=== PATIENT | female | born 1975 | race Caucasian/White ===

== ENCOUNTER 2017-02-08 17:37 | Emergency (ER) | payer SELFPAY ==
[~2017-02-08] VITALS: Ht 157.5 cm; Wt 90.0 kg
[~2017-02-08 17:37] MED LIST: HYDR25TA5 PO; IBUP1TAB7 PO; PRAM0.25 PO; SERT-129 PO
[2017-02-08 17:43] VITALS: BP 114/82; PULSE 90; RESP 16; TEMP 98.2; O2SAT 96
[2017-02-08] MEDS ORDERED: IBUP1TAB7 PO (18:54)
[2017-02-08] MEDS ORDERED: ROBA500T PO (18:54)
--- NOTE | 2017-02-08 18:54 | PD ---
HPI Chief Complaint: Back/ Neck Pain or Injury Time Seen by Provider: 18:45 Travel History International Travel<30 days: No Contact w/Intl Traveler<30days: No Traveled to known affect area: No History of Present Illness HPI 41-year-old female here with left low back pain 3 days. Patient reports she was bending over in the shower felt a pain within left back. Over the last 3 days pain has intensified and now feels as if it spasming. Pain does not radiate. She denies incontinence, saddle anesthesia, paresthesia or weakness in the extremities. Pain is worse with movement and relieved with rest. PFSH Past Medical History Hx Anticoagulant Therapy: No Depression: Yes (AFTER FATHERS ) Heart Rhythm Problems: Yes (palpitations (?)) Cancer: No Cardiovascular Problems: Yes (HTN) Diabetes: No Diminished Hearing: No Gastrointestinal Disorders: No Genitourinary: Yes Hypertension: Yes Implanted Vascular Access Dvce: No Musculoskeletal: No Neurologic: No Respiratory: No Immunizations Current: Yes Pneumonia: Yes Tetanus Vaccination: Unknown ?: Not : 2 Para: 2 Ovarian Cysts: Yes Tubal Ligation: Yes Past Surgical History Abdominal Surgery: Yes (cholestysectomy, appendectomy) Appendectomy: Yes (1982) Section: Yes (X1) Cholecystectomy: Yes Gynecologic Surgery: Yes (c- section, tubal ligation, ovarian cyst) Social History Alcohol Use: No Tobacco Use: No Substance Use: No Allergies-Medications (Allergen,Severity, Reaction): Coded Allergies: metoclopramide (Unverified Adverse Reaction, Mild, ITCHY, 02/08/17) Reported Meds & Prescriptions Reported Meds & Active Scripts Active Sertraline (Sertraline HCl) 100 Mg Tab 100 Mg PO DAILY Pramipexole (Pramipexole Dihydrochloride) 0.25 Mg Tab 0.25 Mg PO HS Hydrochlorothiazide 25 Mg Tab 25 Mg PO DAILY Review of Systems Except as stated in HPI: all other systems reviewed are Neg General / Constitutional: No: Fever Physical Exam Narrative GENERAL: Alert female in no distress. SKIN: Warm and dry. HEAD: Normocephalic. EYES: No scleral icterus. No injection or drainage. NECK: Supple, trachea midline. No JVD or lymphadenopathy. CARDIOVASCULAR: Regular rate and rhythm without murmurs, gallops, or rubs. RESPIRATORY: Breath sounds equal bilaterally. No accessory muscle use. GASTROINTESTINAL: Abdomen soft, non-tender, nondistended. MUSCULOSKELETAL: No cyanosis, or edema. Normal strength and sensation in lower extremity. 2+ DTRs. BACK: Left lumbar tenderness. Without obvious deformity. No CVA tenderness. Data Data Last Documented VS Vital Signs Date Time Temp Pulse Resp B/P (MAP) Pulse Ox O2 Delivery O2 Flow Rate FiO2 02/08/17 17:43 98.2 90 16 114/82 (93) 96 Orders Orders Ketorolac Inj (Toradol Inj) (02/08/17 19:00) Orphenadrine Inj (Norflex Inj) (02/08/17 19:00) [facility] Medical Decision Making Medical Screen Exam Complete: Yes Emergency Medical Condition: Yes Differential Diagnosis Umber strain, sciatica, herniated disc Narrative Course 41-year-old female with left low back pain 3 days. She has left lumbar paraspinous musculature tenderness. Normal neurologic exam. She'll be treated for lumbar strain. Diagnosis Primary Impression: Lumbar strain Qualified Codes: S39.012A - Strain of muscle, fascia and tendon of lower back , initial encounter Referrals: Primary Care Physician Scripts Methocarbamol (Robaxin) 500 Mg Tab 500 MG PO TID for Muscle Spasm, #12 TAB 0 Refills Prov: Fe Morgan 02/08/17 Ibuprofen (Ibuprofen) 800 Mg Tab 800 MG PO Q6HR Y for PAIN, #40 TAB 0 Refills Prov: Fe Morgan 02/08/17 Disposition: 01 DISCHARGE HOME Condition: Stable Fe Morgan Feb 08, 2017 18:54
[2017-02-08] MEDS ORDERED: ORPHENADRINE INJ 60 MG/2 ML AMP IM ONE (19:00)
[2017-02-08] MEDS ORDERED: KETOROLAC TROMETHAMINE 60 MG/2 ML (IM) VIAL IM ONE (19:00)
[2017-02-12] MEDS ORDERED: PRAM0.25 PO (14:44)
[2017-02-16] MEDS ORDERED: PRAM0.5T PO (12:35)
== END 2017-02-08 19:18 | disposition home or self-care (01) ==
LOC: PHEFT 17:37
DX: S39.012A Strain of muscle, fascia and tendon of lower back, initial encounter (principal); I10 Essential (primary) hypertension; X50.1XXA Overexertion from prolonged static or awkward postures, initial encounter; Y93.E1 Activity, personal bathing and showering; Y92.002 Bathroom of unspecified non-institutional (private) residence as the place of occurrence of the external cause
CPT/HCPCS: 96372; 99284; J1885; J2360

== ENCOUNTER 2017-04-13 19:20 | Emergency (ER) | payer SELFPAY ==
[~2017-04-13] VITALS: Ht 157.5 cm; Wt 84.0 kg
[2017-04-13 19:42] VITALS: BP 150/85; PULSE 81; RESP 16; TEMP 99.3; O2SAT 97
[2017-04-14] MEDS ORDERED: TYLE325T PO (01:00)
== END 2017-04-13 20:55 | disposition left against medical advice (07) ==
LOC: PHED 19:20
DX: R10.9 Unspecified abdominal pain (principal); Z98.890 Other specified postprocedural states; Z53.21 Procedure and treatment not carried out due to patient leaving prior to being seen by health care provider
CPT/HCPCS: 99281

== ENCOUNTER 2017-04-13 22:11 | Emergency (ER) | payer SELFPAY ==
[2017-04-13 22:23] VITALS: BP 125/65; PULSE 76; RESP 19; TEMP 98.4; O2SAT 97
[2017-04-13] MEDS ORDERED: ONDANSETRON HCL 4 MG/2 ML VIAL IVP ONE (22:30)
[2017-04-13] MEDS ORDERED: KETOROLAC TROMETHAMINE 30 MG/ML (IVP) VIAL IV PUSH ONE (22:30)
--- NOTE | 2017-04-13 22:33 | PD ---
HPI Chief Complaint: Abdominal Pain Time Seen by Provider: 22:27 Travel History International Travel<30 days: No Contact w/Intl Traveler<30days: No Traveled to known affect area: No History of Present Illness HPI 41yo F with PMH of HTN and depression presents to the ED with c/o abdominal pain since 7pm today. Pain is sharp, epigastric and RUQ. It is intermittent and associated with some nausea. Denies any fever, chest pain, sob, vomiting, diarrhea, dysuria, hematuria. Said she started having right sided headed since the pain was so bad on her way here. Feels like her usual headache and denies any neck pain, focal weakness or numbness, visual changes. Did not take any pain medication at home. PSH include appendectomy, cholecystectomy, tubal ligation and liposuction. Denies any alcohol use. PFSH Past Medical History Hx Anticoagulant Therapy: No Depression: Yes Heart Rhythm Problems: Yes Cancer: No Cardiovascular Problems: Yes (HTN) Diabetes: No Diminished Hearing: No Gastrointestinal Disorders: No Genitourinary: Yes Hypertension: Yes Implanted Vascular Access Dvce: No Musculoskeletal: No Neurologic: No Respiratory: No Immunizations Current: Yes Pneumonia: Yes Influenza Vaccination: No ?: Not : 2 Para: 2 Ovarian Cysts: Yes Tubal Ligation: Yes Past Surgical History Abdominal Surgery: Yes (LIPO SUCTION) Appendectomy: Yes (1982) Section: Yes (X1) Cholecystectomy: Yes Gynecologic Surgery: Yes (c- section, tubal ligation, ovarian cyst) Social History Alcohol Use: No Tobacco Use: No Substance Use: No Allergies-Medications (Allergen,Severity, Reaction): Coded Allergies: metoclopramide (Verified Adverse Reaction, Mild, ITCHY, 04/13/17) Reported Meds & Prescriptions Reported Meds & Active Scripts Active Hydrochlorothiazide 25 Mg Tab 25 Mg PO DAILY Ibuprofen 800 Mg Tab 800 Mg PO Q6HR PRN Sertraline (Sertraline HCl) 100 Mg Tab 100 Mg PO DAILY Reported Pramipexole (Pramipexole Dihydrochloride) 0.25 Mg Tab 0.25 Mg PO BID Review of Systems Except as stated in HPI: all other systems reviewed are Neg Physical Exam Narrative GENERAL: 41yo F in mild distress. SKIN: Focused skin assessment warm/dry. HEAD: Atraumatic. Normocephalic. EYES: Pupils equal and round. No scleral icterus. No injection or drainage. ENT: No nasal bleeding or discharge. Mucous membranes pink and moist. NECK: Trachea midline. No JVD. CARDIOVASCULAR: Regular rate and rhythm. No murmur appreciated. RESPIRATORY: No accessory muscle use. Clear to auscultation. Breath sounds equal bilaterally. GASTROINTESTINAL: Abdomen soft, +TTP diffusely but more epigastric and RUQ. No rebound tenderness or guarding. MUSCULOSKELETAL: No obvious deformities. No clubbing. No cyanosis. No edema. NEUROLOGICAL: Awake and alert. No obvious cranial nerve deficits. Motor grossly within normal limits in all extremities. Sensation intact. Normal speech. PSYCHIATRIC: Appropriate mood and affect; insight and judgment normal. Data Data Last Documented VS Vital Signs Date Time Temp Pulse Resp B/P (MAP) Pulse Ox O2 Delivery O2 Flow Rate FiO2 04/13/17:25 19 04/13/17:23 98.4 76 125/65 (85) 97 Orders Orders Complete Blood Count With Diff (04/13/17:) Comprehensive Metabolic Panel (04/13/17:) Lipase (04/13/17 22:27) Prothrombin Time / Inr (Pt) (04/13/17:) Act Partial Throm Time (Ptt) (04/13/17:) Urinalysis - C+S If Indicated (04/13/17:) Ct Abd/Pel W Iv Contrast(Rout) (04/13/17 22:27) Ondansetron Inj (Zofran Inj) (04/13/17 22:30) Electrocardiogram (04/13/17 22:27) Ed Urine Pregnancytest Poc (04/13/17 22:27) Ketorolac Inj (Toradol Inj) (04/13/17 22:30) Morphine Inj (Morphine Inj) (04/13/17 22:45) Iohexol 350 Inj (Omnipaque 350 Inj) (04/13/17 23:04) Potassium Chloride (Kcl) (04/13/17 23:30) Morphine Inj (Morphine Inj) (04/13/17 23:30) Labs Laboratory Tests Test 04/13/17 22:30 04/14/17 00:10 White Blood Count 12.8 TH/MM3 Red Blood Count 4.32 MIL/MM3 Hemoglobin 12.1 GM/DL Hematocrit 35.6 % Mean Corpuscular Volume 82.3 FL Mean Corpuscular Hemoglobin 27.9 PG Mean Corpuscular Hemoglobin Concent 33.9 % Red Cell Distribution Width 14.0 % Platelet Count 288 TH/MM3 Mean Platelet Volume 8.5 FL Neutrophils (%) (Auto) 64.5 % Lymphocytes (%) (Auto) 26.3 % Monocytes (%) (Auto) 7.5 % Eosinophils (%) (Auto) 1.1 % Basophils (%) (Auto) 0.6 % Neutrophils # (Auto) 8.3 TH/MM3 Lymphocytes # (Auto) 3.4 TH/MM3 Monocytes # (Auto) 1.0 TH/MM3 Eosinophils # (Auto) 0.1 TH/MM3 Basophils # (Auto) 0.1 TH/MM3 CBC Comment DIFF FINAL Differential Comment Prothrombin Time 10.1 SEC Prothromb Time International Ratio 1.0 RATIO Activated Partial Thromboplast Time 24.7 SEC Blood Urea Nitrogen 20 MG/DL Creatinine 0.82 MG/DL Random Glucose 112 MG/DL Total Protein 7.7 GM/DL Albumin 3.7 GM/DL Calcium Level 9.3 MG/DL Alkaline Phosphatase 61 U/L Aspartate Amino Transf (AST/SGOT) 14 U/L Alanine Aminotransferase (ALT/SGPT) 47 U/L Total Bilirubin 0.3 MG/DL Sodium Level 139 MEQ/L Potassium Level 3.0 MEQ/L Chloride Level 101 MEQ/L Carbon Dioxide Level 29.1 MEQ/L Anion Gap 9 MEQ/L Estimat Glomerular Filtration Rate 76 ML/MIN Lipase 104 U/L Urine Color YELLOW Urine Turbidity CLEAR Urine pH 7.0 Urine Specific Stanley GREATER THAN 1.050 Urine Protein 30 mg/dL Urine Glucose (UA) NEG mg/dL Urine Ketones NEG mg/dL Urine Occult Blood NEG Urine Nitrite NEG Urine Bilirubin NEG Urine Urobilinogen LESS THAN 2.0 MG/DL Urine Leukocyte Esterase NEG Urine RBC 2 /hpf Urine WBC LESS THAN 1 /hpf Urine Squamous Epithelial Cells 3 /hpf Urine Bacteria RARE /hpf Urine Mucus FEW /lpf Microscopic Urinalysis Comment CULT NOT INDICATED MDM Medical Decision Making Medical Screen Exam Complete: Yes Emergency Medical Condition: Yes Interpretation(s) EKG: NSR 69bpm. Normal axis. T wave flattening V2, V3. Differential Diagnosis Peptic ulcer disease vs. pancreatitis vs. choledocholithiasis vs. hepatitis Narrative Course 41yo F with epigastric/right upper abdominal pain. Vital signs stable. Labs reviewed, WBC 12.8. BUN mildly elevated at 20. Pt tolerating PO and can orally hydrate. Mild hypokalemia at 3.0, replaced orally. Lipase normal. LFTs normal. CT a/p showed no acute disease. Pt given toradol and zofran which didnt help with pain so given morphine. Pt reevaluated after morphine and pain has resolved. Pt tolerating PO. UA negative for leukocyte. Culture not indicated. Return precautions given. Diagnosis Primary Impression: Epigastric abdominal pain Referrals: Jose Luis Balderas MD call for appointment Patient Instructions: General Instructions Departure Forms: Tests/Procedures Additional Instructions: Please follow up with GI if your pain persists. Return to the ED if symptoms worsen. Med/Other Pt SpecificInfo: Prescription(s) given Scripts Acetaminophen (Tylenol) 325 Mg Tab 650 MG PO Q6H Y for PAIN SCALE 1 TO 4, #20 TAB 0 Refills Prov: Zakiya Chadwick DO 04/14/17 Disposition: 01 DISCHARGE HOME Condition: Stable Zakiya Chadwick DO Apr 13, 2017 22:33
[2017-04-13 22:45] LABS: AUTOMATED NEUTROPHIL # 8.3 TH/MM3 (1.8-7.7); BASOPHIL # 0.1 TH/MM3 (0-0.2); BASOPHIL % 0.6 % (0.0-2.0); EOSINOPHIL # 0.1 TH/MM3 (0-0.4); EOSINOPHIL % 1.1 % (0.0-4.0); HEMATOCRIT 35.6 % (35.0-46.0); HEMOGLOBIN 12.1 GM/DL (11.6-15.3); LYMPH % 26.3 % (9.0-44.0); LYMPHOCYTE # 3.4 TH/MM3 (1.0-4.8); MEAN CELL VOLUME 82.3 FL (80.0-100.0); MEAN CORPUSCULAR HEMOGLOBIN 27.9 PG (27.0-34.0); MEAN CORPUSCULAR HGB CONC 33.9 % (32.0-36.0); MEAN PLATELET VOLUME 8.5 FL (7.0-11.0); MONO % 7.5 % (0.0-8.0); NEUT % 64.5 % (16.0-70.0); PLATELET COUNT 288 TH/MM3 (150-450); RED BLOOD COUNT 4.32 MIL/MM3 (4.00-5.30); WHITE BLOOD COUNT 12.8 TH/MM3 (4.0-11.0)
[2017-04-13] MEDS ORDERED: MORPHINE SULFATE 2 MG/ML INJ IV PUSH ONE ×2 (22:45→23:30)
[2017-04-13 23:04] LABS: ALBUMIN 3.7 GM/DL (3.4-5.0); ALT (GPT) 47 U/L (10-53); AST (GOT) 14 U/L (15-37); BICARBONATE 29.1 MEQ/L (21.0-32.0); BLOOD UREA NITROGEN 20 MG/DL (7-18); CALCIUM 9.3 MG/DL (8.5-10.1); CHLORIDE 101 MEQ/L (98-107); CREATININE 0.82 MG/DL (0.50-1.00); GLOMERULAR FILTRATION RATE 76 ML/MIN (>89); GLUCOSE,RANDOM 112 MG/DL (74-106); SODIUM (NA) 139 MEQ/L (136-145)
[2017-04-13] MEDS ORDERED: IOHEXOL 350 MG/ML 10 ML VIAL (for RAD DIAG) IVCONTRAST ONE (23:04)
[2017-04-13 23:06] LABS: ALKALINE PHOSPHATASE 61 U/L (45-117); TOTAL BILIRUBIN ADULT 0.3 MG/DL (0.2-1.0); TOTAL PROTEIN 7.7 GM/DL (6.4-8.2)
--- NOTE | 2017-04-13 23:14 | RADRPT ---
EXAM DATE/TIME: 04/13/2017 23:00 [place] COMPARISON: CT ABDOMEN & PELVIS W CONTRAST, October 09, 2015, 1:24. INDICATIONS : Right upper quadrant pain. IV CONTRAST: 100 cc Omnipaque 350 (iohexol) IV ORAL CONTRAST: No oral contrast ingested. RADIATION DOSE: 11.56 CTDIvol (mGy) MEDICAL HISTORY : Liposuction. SURGICAL HISTORY : None. ENCOUNTER: Initial ACUITY: 1 day PAIN SCALE: 5/10 LOCATION: Right upper quadrant TECHNIQUE: Volumetric scanning of the abdomen and pelvis was performed. Using automated exposure control and ad justment of the mA and/or kV according to patient size, radiation dose was kept as low as reasonably achievable to obtain optimal diagnostic quality images. DICOM format image data is available electro nically for review and comparison. FINDINGS: The patient is status post cholecystectomy with surgical clips in the gallbladder fossa and mild prom inence of the intrahepatic biliary tree, decreased in prominence from the previous study likely relat ed to a reservoir effect. Pancreas, spleen, adrenals, kidneys are unremarkable. Urinary bladder, uter us, adnexa unremarkable. There are postsurgical changes to the anterior abdominal wall subcutaneous t issues. No inflammatory changes are seen within the abdomen or pelvis. No adenopathy. The stomach is unremarkable. CONCLUSION: No acute disease. Ravinder Morris MD on April 13, 2017 at 23:09 Board Certified Radiologist. This report was verified electronically.
[2017-04-13] MEDS ORDERED: POTASSIUM CHLORIDE 20 MEQ CONTROLLED RELEASE TAB PO ONE (23:30)
[2017-04-13 23:40] LABS: PROTHROMBIN TIME - PATIENT 10.1 SEC (9.8-11.6)
[2017-04-14 00:31] LABS: BACTERIA, URINE RARE /hpf; BILIRUBIN, URINE NEG (NEG); BLOOD, URINE NEG (NEG); GLUCOSE,URINE NEG (NEG); KETONE, URINE NEG (NEG); MUCUS URINE FEW /lpf (OCC); NITRITE,URINE NEG (NEG); SQUAMOUS EPITHELIAL CELL URINE 3 /hpf (0-5); URINE COLOR YELLOW (YELLW/STRAW); URINE LEUKOCYTE ESTERASE NEG (NEG)
[2017-04-14] MEDS ORDERED: TYLE325T PO (01:00)
--- NOTE | 2017-04-15 08:35 | EKG ---
Date Performed: 04/13/2017 Time Performed: 22:41:32 PTAGE: 41 years EKG: Sinus rhythm LOW QRS VOLTAGE IN PRECORDIAL LEADS BORDERLINE ECG Compared to PREVIOUS TRACING heart rate is faster PREVIOUS TRACIN10/09/15 DOCTOR: Neptali Gonsalves Interpretating Date/Time 04/15/2017 08:34:28
== END 2017-04-14 01:30 | disposition home or self-care (01) ==
LOC: NEPE 22:11
DX: R10.13 Epigastric pain (principal); R94.31 Abnormal electrocardiogram [ECG] [EKG]; F32.9 Major depressive disorder, single episode, unspecified; I10 Essential (primary) hypertension; Z88.8 Allergy status to other drugs, medicaments and biological substances
CPT/HCPCS: 74177; 80053; 81001; 83690; 84703; 85025; 85610; 85730; 93005; 96374; 96375; 96376; 99285; J1885; J2270; J2405; Q9967

== ENCOUNTER 2018-04-20 22:05 | Observation (INO) ==
--- NOTE | 2018-04-20 22:29 | ED ---
HPI General Chief Complaint: Chest Pain Stated Complaint: Chest Pain Time Seen by Provider: 04/20/18 22:09 Source: patient Mode of arrival: wheelchair Limitations: no limitations History of Present Illness HPI narrative: Patient is a 42-year-old female, past medical history significant for hypertension, who presents with complaint of chest pain. It has been intermittent for the last several weeks worsening over the last 2 days. She is normally doing nothing when it comes on and off and watching TV. It does not occur with exertion nor around meals. It is associated with dyspnea and does radiate to her back. It is a sharp heaviness that she states "feels like an elephant is on my chest." She has had some nausea as well but no vomiting. No cough nor congestion. No fever nor chills. She did recently have a long trip from [place] to [place] to [place] and then to [facility]. She states she had some leg swelling at that time but took 2 of her hydrochlorothiazide's, decreased her salt intake and it resolved. She does have a family history significant for early cardiac disease and states that her father had a four-vessel bypass in his 40s. No smoking or drug abuse. MD complaint: Reports chest pain STEMI Alert: No Onset (ago): week(s) Duration: intermittent Onset: during rest Pain location: Reports substernal Severity: moderate Quality: Reports heaviness and sharp Pain radiation: Reports back Relieving factors: nothing Exacerbating factors: nothing Associated symptoms: Reports nausea and dyspnea Treatments prior to arrival chest pain: Reports none Related Data On Oral Contraceptives: No Home Medications Medication Instructions Recorded Confirmed sertraline [Zoloft] 100 mg PO DAILY 10/07/17 04/20/18 esomeprazole magnesium [Nexium 20 mg PO DAILY 04/20/18 04/20/18 24HR] hydrochlorothiazide 25 mg PO DAILY 04/20/18 04/20/18 ropinirole 0.75 mg PO HS 04/20/18 04/20/18 Allergies Allergy/AdvReac Type Severity Reaction Status Date / Time metoclopramide AdvReac Mild ITCHY Verified 04/20/18 23:09 Review of Systems ROS: all other systems reviewed are negative [facility] Medical History Medical History Hypertension (Acute) Reflux gastritis (Acute) Restless leg syndrome (Acute) Depression (Acute) Surgical History Surgical History H/O tubal ligation (Acute) Hx of appendectomy (Acute) Hx of cholecystectomy (Acute) Previous section (Acute) Social History Social History Substance History: No History of Abuse Second Hand Smoke Exposure: No Smoking Status: Never smoker How Often Do You Have a Drink Containing Alcohol: Never Recent Travel in [facility] within the Last 8 Weeks: Yes Recent Out of Country Travel within the Last 8 Weeks: No Exam Narrative Exam Narrative: GENERAL: Well-appearing female in no acute respiratory distress SKIN: Focused skin assessment warm/dry. No rashes. HEAD: Atraumatic. Normocephalic. EYES: Pupils equal and round. No scleral icterus. No injection or drainage. ENT: No nasal bleeding or discharge. Mucous membranes pink and moist. NECK: Trachea midline. No JVD. CARDIOVASCULAR: Regular rate and rhythm. No murmur appreciated. Intact and equal peripheral pulses. RESPIRATORY: No accessory muscle use. Clear to auscultation. Breath sounds equal bilaterally. GASTROINTESTINAL: Abdomen soft, non-tender, nondistended. Hepatic and splenic margins not palpable. MUSCULOSKELETAL: No obvious deformities. No clubbing. No cyanosis. No bilateral lower extremity edema. NEUROLOGICAL: Awake and alert. No obvious cranial nerve deficits. Motor grossly within normal limits. Normal speech. PSYCHIATRIC: Appropriate mood and affect; insight and judgment normal. Course Initial Documented Vital Signs Temperature 98.0 F 04/20/18 22:15 Pulse Rate 80 04/20/18 22:15 Respiratory Rate 18 04/20/18 22:15 Blood Pressure 125/90 04/20/18 22:15 Pulse Oximetry 96 04/20/18 22:15 Last Documented Vital Signs Temperature 97.3 F L 04/21/18 12:25 Pulse Rate 67 04/21/18 12:25 Respiratory Rate 20 04/21/18 12:25 Blood Pressure 120/75 04/21/18 12:25 Pulse Oximetry 95 04/21/18 12:25 Sign Out Sign Out Data: Patient Sign Out occurred on 04/21/18 at 01:36. Patient's care was discussed, and care was transferred from Kamala Ortiz MD to Mckenzie Carrillo MD. Sign Out Comment: 42 yof with intermittent sharp/heavy chest pain while doing nothing in particular. EKG unremarkable. CXR without acute process. Wells' PE score moderate risk. HEART score 1-2. D-dimer and troponin WNL. Plan for delta troponin @ 0120 and dc home if okay and remains chest pain free. Patient informed me that she may decide to sign out AMA prior to this. Last updated by Kamala Ortiz MD at 04/20/18 23:53 Post-Handoff Eval: Accepted in transfer of care from Dr. Ortiz for follow-up of delta troponin Clinical Decision Support HEART Score Questions History: Slightly suspicious EKG: Normal Age: < 45 years Risk Factors: 1-2 Risk Factors Initial Troponin: Normal Limit Heart Score HEART Score: 1 PERC Rule Age greater than or equal to 50: No HR greather than or equal to 100: No Sa02 on room air is less than 95%: No Unilateral Leg Swelling: No Hemoptysis: No Recent Surgery or Trauma: No Prior PE or DVT: No Hormone Use: No Wells' Criteria Questions Clinical Signs and Symptoms of DVT: No PE is primary diagnosis or equally likely: Yes Heart Rate greater than 100: No Immobilized at least 3 days or Surgery in previous 4 weeks: Yes Previous, objectively diagnosed PE or DVT: No Hemoptysis: No Malignancy with treatment within 6 months or palliative: No Wells' Criteria Score Wells' Criteria Score: 4.5 Medical Decision Making [facility] Narrative Medical decision making narrative: Patient is a 42-year-old female who presents with complaint of chest pain that has been intermittent. EKG is without acute ischemic changes. CXR does not show an acute cardiopulmonary process. Labs including d-dimer and initial troponin are unremarkable. I informed the patient that I would like to observe her in the emergency department until she has a delta troponin drawn 3 hours after the first. She understands this and will decide whether she stays until the repeat troponin results or signs out AGAINST MEDICAL ADVICE. Cardiac risks: positive htn, fh early onset mi father; no dm, chol, tobacco age 42; patient concerned about cardiac dz unknown cholesterol or DM status requests RX fro [facility] NTG --will complete rubber stamp assembler protocol --OBS discussed with DR Woodruff --OBS POLYSOMNOGRAPH TECH protocol Medical Screen Exam Complete: Yes Emergency Medical Condition: Yes Differential Diagnosis Differential Diagnosis: Differential diagnosis includes but is not limited to acute coronary syndrome, pulmonary embolism, pneumonia. Medical Records Medical records reviewed: Yes I reviewed the patient's medical records. Lab Data Lab results reviewed: Yes I reviewed the patient's lab results. Result diagrams: 04/20/18 22:25 04/20/18 22:25 POC Results POC Urine Results Negative Lab Results 04/20/18 04/20/18 04/20/18 Range/Units 22:25 22:25 22:25 CBC w Diff Slide review pending WBC 12.9 H (4.0-11.0) th/mm3 RBC 5.04 (4.00-5.30) mil/mm3 Hgb 14.0 (11.6-15.3) gm/dL Hct 41.0 (35.0-46.0) % MCV 81.3 (80.0-100.0) fL MCH 27.8 (27.0-34.0) pg MCHC 34.2 (32.0-36.0) % RDW 12.9 (11.6-17.2) % Plt Count 297 (150-450) th/mm3 MPV 8.7 (7.0-11.0) fL Neut % (Auto) 64.0 (16.0-70.0) % Lymph % (Auto) 25.1 (9.0-44.0) % Mcculloch % (Auto) 8.2 H (0.0-8.0) % Eos % (Auto) 1.1 (0.0-4.0) % Baso % (Auto) 1.6 (0.0-2.0) % Neut # (Auto) 8.3 H (1.8-7.7) th/mm3 Lymph # (Auto) 3.2 (1.0-4.8) th/mm3 Mcculloch # (Auto) 1.1 H (0.0-0.9) th/mm3 Eos # (Auto) 0.1 (0.0-0.4) th/mm3 Baso # (Auto) 0.2 (0.0-0.2) th/mm3 WBC Differential . Diff Scan Auto diff confirmed Differential Comment . Platelet Estimate Normal (Normal) Platelet Morphology Normal (Normal) D-Dimer Quant (PE/DVT) 0.31 (0.00-0.50) mg/L FEU Sodium 134 L (136-145) meq/L Potassium 3.1 L (3.5-5.1) meq/L Chloride 99 (98-107) meq/L Carbon Dioxide 27.4 (21.0-32.0) meq/L Anion Gap 8 (5-15) meq/L BUN 22 H (7-18) mg/dL Creatinine 0.84 (0.50-1.00) mg/dL Estimated GFR 74 L (>89) mL/min Random Glucose 111 H (74-106) mg/dL Calcium 9.2 (8.5-10.1) mg/dL Total Bilirubin 0.5 (0.2-1.0) mg/dL AST 22 (15-37) U/L ALT 70 H (10-53) U/L Alkaline Phosphatase 68 (45-117) U/L Total Creatine Kinase (26-192) U/L Troponin I Less than 0.02 L (0.02-0.05) ng/mL Total Protein 8.1 (6.4-8.2) g/dL Albumin 3.8 (3.4-5.0) g/dL Triglycerides (42-150) mg/dL Cholesterol (120-200) mg/dL LDL Cholesterol, Calc (0-99) mg/dL HDL Cholesterol (40.0-60.0) mg/dL Cholesterol/HDL Ratio Ratio 04/21/18 04/21/18 04/21/18 Range/Units 01:15 04:15 04:15 CBC w Diff WBC (4.0-11.0) th/mm3 RBC (4.00-5.30) mil/mm3 Hgb (11.6-15.3) gm/dL Hct (35.0-46.0) % MCV (80.0-100.0) fL MCH (27.0-34.0) pg MCHC (32.0-36.0) % RDW (11.6-17.2) % Plt Count (150-450) th/mm3 MPV (7.0-11.0) fL Neut % (Auto) (16.0-70.0) % Lymph % (Auto) (9.0-44.0) % Mcculloch % (Auto) (0.0-8.0) % Eos % (Auto) (0.0-4.0) % Baso % (Auto) (0.0-2.0) % Neut # (Auto) (1.8-7.7) th/mm3 Lymph # (Auto) (1.0-4.8) th/mm3 Mcculloch # (Auto) (0.0-0.9) th/mm3 Eos # (Auto) (0.0-0.4) th/mm3 Baso # (Auto) (0.0-0.2) th/mm3 WBC Differential Diff Scan Differential Comment Platelet Estimate (Normal) Platelet Morphology (Normal) D-Dimer Quant (PE/DVT) (0.00-0.50) mg/L FEU Sodium (136-145) meq/L Potassium (3.5-5.1) meq/L Chloride (98-107) meq/L Carbon Dioxide (21.0-32.0) meq/L Anion Gap (5-15) meq/L BUN (7-18) mg/dL Creatinine (0.50-1.00) mg/dL Estimated GFR (>89) mL/min Random Glucose (74-106) mg/dL Calcium (8.5-10.1) mg/dL Total Bilirubin (0.2-1.0) mg/dL AST (15-37) U/L ALT (10-53) U/L Alkaline Phosphatase (45-117) U/L Total Creatine Kinase 57 55 (26-192) U/L Troponin I Less than 0.02 L Less than 0.02 L (0.02-0.05) ng/mL Total Protein (6.4-8.2) g/dL Albumin (3.4-5.0) g/dL Triglycerides 111 (42-150) mg/dL Cholesterol 197 (120-200) mg/dL LDL Cholesterol, Calc 116 H (0-99) mg/dL HDL Cholesterol 59.2 (40.0-60.0) mg/dL Cholesterol/HDL Ratio 3.32 Ratio Imaging Data Attestation: I personally reviewed and interpreted this imaging study as follows : Radiologist's impression: Chest X-Ray 04/20/18 22:21 CONCLUSION: 1. Probable 6.5 mm bone island in the anterolateral aspect of the right second rib, Unchanged since 2011. 2. Lungs are otherwise clear. No acute cardiopulmonary process. Myocardial Perfusion Scan Nuc Med 04/21/18 00:00 CONCLUSION: 1. Negative for stress-induced ischemia ECG Data Attestation: I personally reviewed and interpreted this ECG as follows: (Sinus rhythm at a rate of [address] or T wave changes.) Discharge Plan Discharge Disposition Patient Disposition: Sign Out(ED Internal Use Only) Discharge Condition Condition: Stable Discharge Order Discharge Orders: Discharge Order (Routine); Ordered 04/21/18 Ordered By: Chapis Longoria ED Use Only Admit Order (Routine); Ordered 04/21/18 Ordered By: Mckenzie Carrillo Discharge Details Anticipated Discharge Date: 04/21/18 Diagnosis: Chest pain, rule out acute myocardial infarction Physicians Team ED Provider: Mckenzie Carrillo Primary Care Provider: Lacy Guidry Attending Provider: Tarik Chambers Status ED Status: Left Department Discharge Information Discharge Date/Time: 04/21/18 05:40
[2018-04-20 22:33] LABS: Baso # (Auto) 0.2 th/mm3 (0.0-0.2); Baso % (Auto) 1.6 % (0.0-2.0); Eos # (Auto) 0.1 th/mm3 (0.0-0.4); Eos % (Auto) 1.1 % (0.0-4.0); Lymph # (Auto) 3.2 th/mm3 (1.0-4.8); Lymph % (Auto) 25.1 % (9.0-44.0); Mean Corpuscular HGB Conc 34.2 % (32.0-36.0); Mean Corpuscular Hemoglobin 27.8 pg (27.0-34.0); Mean Corpuscular Volume 81.3 fL (80.0-100.0); Mean Platelet Volume 8.7 fL (7.0-11.0); Mono # (Auto) 1.1 th/mm3 (0.0-0.9); Mono % (Auto) 8.2 % (0.0-8.0); Neut # (Auto) 8.3 th/mm3 (1.8-7.7); Platelet Count 297 th/mm3 (150-450); Red Blood Count 5.04 mil/mm3 (4.00-5.30); Red Cell Distribution Width 12.9 % (11.6-17.2); White Blood Count 12.9 th/mm3 (4.0-11.0)
[2018-04-20 22:43] LABS: Chloride 99 meq/L (98-107); Potassium 3.1 meq/L (3.5-5.1); Sodium 134 meq/L (136-145)
[2018-04-20 22:46] LABS: Calcium 9.2 mg/dL (8.5-10.1)
[2018-04-20 22:47] LABS: Albumin 3.8 g/dL (3.4-5.0); Anion Gap 8 meq/L (5-15); Blood Urea Nitrogen 22 mg/dL (7-18); Carbon Dioxide 27.4 meq/L (21.0-32.0); Glucose,Random 111 mg/dL (74-106)
[2018-04-20 22:50] LABS: Alanine Aminotransferase 70 U/L (10-53); Aspartate Aminotransferase 22 U/L (15-37); Glomerular Filtration Rate 74 mL/min (>89)
[2018-04-20 22:51] LABS: Total Protein 8.1 g/dL (6.4-8.2)
[2018-04-20 22:53] LABS: Alkaline Phosphatase 68 U/L (45-117)
[2018-04-20 22:55] LABS: Platelet Estimate Normal (Normal); Platelet Morphology Normal (Normal)
--- NOTE | 2018-04-20 23:13 | XR ---
EXAM DATE: 04/20/2018 10:56 PM EST AGE/SEX: 42 years / Female INDICATIONS: . Chest pain. CLINICAL DATA: This is the patient's initial encounter. Patient reports that signs and symptoms have been present for 2 weeks and indicates a pain score of 3/10. MEDICAL/SURGICAL HISTORY: None. None. COMPARISON: [facility], CHEST SINGLE AP, 02/12/2012. . FINDINGS: PA and lateral views of the chest demonstrate the lungs to be symmetrically aerated without evidence of mass, infiltrate or effusion. The cardiomediastinal contours are unremarkable. Osseous structures are intact with a stable 6.5 mm hyperdense area in the anterolateral aspect of the right second rib. CONCLUSION: 1. Probable 6.5 mm bone island in the anterolateral aspect of the right second rib, Unchanged since 2011. 2. Lungs are otherwise clear. No acute cardiopulmonary process. Electronically signed by: Giancarlo Cee MD Board Certified Radiologist 04/20/2018 11:12 PM EST
[2018-04-20] MEDS ORDERED: Ketorolac Inj 30 MG/ML (IVP) Vial IV.PUSH ONE (23:24)
[2018-04-21 02:44] LABS: Creatine Kinase 57 U/L (26-192)
[2018-04-21 04:50] LABS: Creatine Kinase 55 U/L (26-192)
[2018-04-21] MEDS ORDERED: Aspirin 325 MG Tablet PO SCH (09:00)
[2018-04-21 09:05] VITALS: RESP 20
[2018-04-21] MEDS ORDERED: Regadenoson Inj 0.4 MG/5 ML Syringe IV.PUSH ONE (10:21)
--- NOTE | 2018-04-21 10:29 | P.HPIM ---
History of Present Illness Primary Care Physician: Lacy Guidry MD Chief Complaint: Chest pain History of Present Illness: This is a pleasant 42-year-old female patient with a known medical history of hypertension who presented to the ED with complaints of chest pain. Patient states that the chest pain has been intermittent for the last couple weeks, states that it has worsened and become more frequent over the last couple days. Patient states that the chest pain starts in her midsternal chest and radiates to her back, is tight and pressure-like in nature as well as intermittent sharp pains, she states that the pain lasts roughly 5- 15 minutes on average and goes away on its own. She denies any known aggravating or alleviating factors. She does admit to nausea, shortness of breath and diaphoresis with the pain, denies any actual vomiting. Patient states that she feels better actually when she is up and moving trying to get her mind off the pain when it comes on. She has been eating and drinking well without any problems. Denies any recent illness including fever, chills, cough , headache, abdominal pain, vomiting, diarrhea or dysuria. Denies any recent antibiotic use. Patient does state that roughly a year ago she had similar symptoms although at that time she did not get it checked out or undergo a stress test. Denies any previous CAD. Does have a history of hypertension for which she takes HCTZ. Patient's father at the age of 64 due to heart disease, he actually underwent a CABG at the age of 40. Review of Systems Review of Systems: all other systems reviewed are negative [facility] Medical History Medical History Hypertension (Acute) Reflux gastritis (Acute) Restless leg syndrome (Acute) Depression (Acute) Surgical History Surgical History H/O tubal ligation (Acute) Hx of appendectomy (Acute) Hx of cholecystectomy (Acute) Previous section (Acute) Family History Family History Other Cardiovascular disease Social History Social History Substance History: No History of Abuse Second Hand Smoke Exposure: No Smoking Status: Never smoker How Often Do You Have a Drink Containing Alcohol: Never Recent Travel in [facility] within the Last 8 Weeks: Yes Recent Out of Country Travel within the Last 8 Weeks: No Immunization History Tetanus Immunization: >5 Years Medications and Allergies Allergies Allergy/AdvReac Type Severity Reaction Status Date / Time metoclopramide AdvReac Mild ITCHY Verified 04/20/18 23:09 Home Medications Medication Instructions Recorded Confirmed Type sertraline [Zoloft] 100 mg PO DAILY 10/07/17 04/20/18 History esomeprazole magnesium [Nexium 20 mg PO DAILY 04/20/18 04/20/18 History 24HR] hydrochlorothiazide 25 mg PO DAILY 04/20/18 04/20/18 History ropinirole 0.75 mg PO HS 04/20/18 04/20/18 History Active Medications: Active Medications Albuterol (Albuterol Neb (Prn)) 2.5 mg NEB UNSCH PRN PRN Reason: SHORTNESS OF BREATH/WHEEZING Albuterol (Duoneb Neb (Prn)) 1 ampul NEB UNSCH PRN PRN Reason: SHORTNESS OF BREATH/WHEEZING Aspirin (Aspirin) 325 mg PO DAILY [facility] Last Admin: 04/21/18 09:35 Dose: 325 mg Hydrochlorothiazide (Hydrodiuril) 25 mg PO DAILY [facility] Nitroglycerin (Nitrostat Sl) 0.4 mg SL Q5M PRN PRN Reason: CHEST PAIN Non-Formulary Medication (Esomeprazole Magnesium [Nexium 24hr]) 20 mg PO DAILY [facility] Regadenoson (Lexiscan Inj) 0.4 mg IV.PUSH ONCE ONE Stop: 04/21/18 10:22 Sodium Chloride (Ns Flush) 2 ml IV.FLUSH UNSCH PRN PRN Reason: FLUSH AFTER USING IV ACCESS Sodium Chloride (Ns Flush) 2 ml IV.FLUSH PRN PRN PRN Reason: FLUSH AFTER USING IV ACCESS Sodium Chloride (Ns Flush) 2 ml IV.FLUSH BID [facility] Last Admin: 04/21/18 09:35 Dose: Not Given Physical Exam Vital signs: Vital Signs 04/20/18 22:15 04/20/18 22:20 04/20/18 23:02 Temperature 98.0 F Pulse Rate 80 80 84 Respiratory Rate 18 18 Blood Pressure 125/90 119/80 Pulse Oximetry 96 96 95 04/20/18 23:11 04/21/18 01:00 02/20/19 04:00 Temperature 97.1 F L Pulse Rate 98 H 71 74 Respiratory Rate 18 18 18 Blood Pressure 109/75 120/70 114/72 Pulse Oximetry 96 97 96 04/21/18 05:37 04/21/18 06:00 04/21/18 07:20 Temperature Pulse Rate 78 71 Respiratory Rate 18 Blood Pressure 124/89 Pulse Oximetry 96 04/21/18 08:00 Temperature 96.9 F L Pulse Rate 71 Respiratory Rate 20 Blood Pressure 115/59 L Pulse Oximetry 94 L Intake & Output 04/20/18 04/21/18 04/21/18 18:59 06:59 18:59 Weight 93.4 kg Other: # Voids 1 Date of Last Bowel Movement 04/20/18 Weight On Admission 92.6 kg Narrative: GENERAL: Well-developed, well-nourished patient in [facility]. SKIN: Warm and dry. No rash. HEAD: Normocephalic. Atraumatic. EYES: Pupils equal and round. No scleral icterus. No injection or drainage. ENT: No nasal bleeding or discharge. Mucous membranes pink and moist. NECK: Supple. Trachea midline. CARDIOVASCULAR: Regular rate and rhythm. S1, S2 noted. No murmur appreciated. No chest pain to palpation RESPIRATORY: No accessory muscle use. Clear to auscultation. Breath sounds equal bilaterally. GASTROINTESTINAL: Abdomen soft, non-tender, nondistended. Normoactive bowel sounds x4. MUSCULOSKELETAL: No obvious deformities. Extremities without clubbing, cyanosis , or edema. NEUROLOGICAL: Awake and alert. No obvious cranial nerve deficits. Motor grossly within normal limits. 5/5 muscle strength in bilateral upper and lower extremities. Normal speech. PSYCHIATRIC: Appropriate mood and affect; insight and judgment normal. Results Labs CBC & Chem 7: 04/20/18 22:25 04/20/18 22:25 Imaging Impressions Chest X-Ray 04/20/18 22:21 CONCLUSION: 1. Probable 6.5 mm bone island in the anterolateral aspect of the right second rib, Unchanged since 2011. 2. Lungs are otherwise clear. No acute cardiopulmonary process. Caprini VTE Risk Assessment Caprini VTE Risk Assessment: No/Low Risk (score <= 1) Caprini Risk Assessment Model: Point Value = 1 Point Value = 2 Point Value = 3 Point Value = 5 Age 41-60 Minor surgery BMI > 25 kg/m2 Swollen legs Varicose veins or History of unexplained or recurrent spontaneous Oral contraceptives or hormone replacement Sepsis (< 1 month) Serious lung disease, including pneumonia (< 1 month) Abnormal pulmonary function Acute myocardial infarction Congestive heart failure (< 1 month) History of inflammatory bowel disease Medical patient at bed rest Age 61-74 Arthroscopic surgery Major open surgery (> 45 min) Laparoscopic surgery (> 45 min) Malignancy Confined to bed (> 72 hours) Immobilizing plaster cast Central venous access Age >= 75 History of VTE Family history of VTE Factor V Leiden Prothrombin [id number] Lupus anticoagulant Anticardiolipin antibodies Elevated serum homocysteine Heparin-induced thrombocytopenia Other congenital or acquired thrombophilia Stroke (< 1 month) Elective arthroplasty Hip, pelvis, or leg fracture Acute spinal cord injury (< 1 month) Prophylaxis Regimen: Total Risk Factor Score Risk Level Prophylaxis Regimen 0-1 Low Early ambulation 2 Moderate Order ONE of the following: *Sequential Compression Device (SCD) *Heparin 5000 units SQ BID 3-4 Higher Order ONE of the following medications: *Heparin 5000 units SQ TID *Enoxaparin/Lovenox 40 mg SQ daily (WT < 150 kg, CrCl > 30 mL/min) *Enoxaparin/Lovenox 30 mg SQ daily (WT < 150 kg, CrCl > 10-29 mL/min) *Enoxaparin/Lovenox 30 mg SQ BID (WT < 150 kg, CrCl > 30 mL/min) AND/OR *Sequential Compression Device (SCD) 5 or more Highest Order ONE of the following medications: *Heparin 5000 units SQ TID (Preferred with Epidurals) *Enoxaparin/Lovenox 40 mg SQ daily (WT < 150 kg, CrCl > 30 mL/min) *Enoxaparin/Lovenox 30 mg SQ daily (WT < 150 kg, CrCl > 10-29 mL/min) *Enoxaparin/Lovenox 30 mg SQ BID (WT < 150 kg, CrCl > 30 mL/min) AND *Sequential Compression Device (SCD) Assessment and Plan Plan This is a 42-year-old female patient with a known medical history of hypertension who presented to the ED with complaints of chest pain. Chest pain -Patient has been admitted to chest pain center for observation. Serial EKGs and serial troponins been ordered for ruling out ACS purposes. Serial troponin flat. -EKG reviewed showing controlled heart rate, normal sinus rhythm, there is some nonspecific T wave changes in V1 and V2. No ST elevation. -Continue on cardiac telemetry, monitor for any arrhythmias. -Chest x-ray reviewed showing no acute cardiopulmonary disease, does show a probable 6.5 mm bone island in the anterior lateral aspect of the right second rib, unchanged since 2011. D-dimer was negative. -CBC and BMP reviewed, essentially unremarkable. Add lipid panel to labs. -Coronary artery disease risk factors include hypertension, family history of early onset KS in her father. Denies a prior stress test. -Since ACS is ruled out with serial EKGs and serial troponins, patient will undergo a cardiac myocardial perfusion scan to further rule out any ischemia. -Further hospitalization and treatment plan will depend on nuclear imaging results. -Patient stable at this time and agreeable to plan. Hypokalemia -Potassium 3.1. Replaced as ordered. CPK is normal. -Continue to monitor. Hypertension -Continue home hydrochlorothiazide. Monitor blood pressure trends. DVT prophylaxis: SCDs. Ambulation. D/w patient, bedside RN, and Dr. Chambers. H&P: Quality VTE Deep Vein Thrombosis/Pulmonary Embolism Present on Admission: No
[2018-04-21] MEDS ORDERED: hydroCHLOROthiazide 25 MG Tablet PO SCH (10:30)
[2018-04-21] MEDS ORDERED: Pantoprazole Sodium 20 MG DR Tablet PO SCH (10:45)
[2018-04-21 12:29] VITALS: BP 120/75; PULSE 67; TEMP 97.3; O2SAT 95
--- NOTE | 2018-04-21 13:57 | NM ---
EXAM DATE: 04/21/2018 1:40 PM EST AGE/SEX: 42 years / Female INDICATIONS:Angina. . Substernal chest pain. CLINICAL DATA: This is the patient's initial encounter. Patient reports that signs and symptoms have been present for 1 day and indicates a pain score of 5/10. MEDICAL/SURGICAL HISTORY: Hypertension. Tubal ligation. Appendectomy. Cholecystectomy. COMPARISON: No prior exams available for comparison. DOSE: 8.5 mCi Tc 99m Myoview at rest 25.4 mCi [id number] at stress 0.4 mg Lexiscan STRESS SYMPTOMS: Dyspnea and numbness in arms and legs. EJECTION FRACTION: 70 % TECHNIQUE: The patient underwent pharmacologic stress with infusion of prescribed dose. Continuous ECG tracing was monitored during stress. Gated SPECT imaging was performed after stress and conventi onal SPECT imaging was performed at rest. The examination was performed on a SPECT/CT scanner, both attenuation and non-corrected datasets were reviewed. FINDINGS: Distribution: The maximum perfused segment at stress is in the wall. Perfusion Study: The pattern of perfusion at stress is within normal limits. Gated Study: There are intact wall motion and wall thickening without hypokinetic or dyskinetic segm ents. The ejection fraction is calculated at 70%. RISK CATEGORY: Low CONCLUSION: 1. Negative for stress-induced ischemia Electronically signed by: Deny Farfan MD Board Certified Radiologist 04/21/2018 1:56 PM EST
[2018-04-21 14:11] LABS: Chol/HDL Ratio 3.32 Ratio; HDL Cholesterol 59.2 mg/dL (40.0-60.0)
--- NOTE | 2018-04-21 22:41 | ECG ---
Date Performed: 04/21/2018 Time Performed: 04:18:54 PTAGE: 42 years EKG: Sinus rhythm NONSPECIFIC T-WAVE ABNORMALITY BORDERLINE ECG PREVIOUS TRACING : 04/21/2018 01.08 DOCTOR: Hardy Waters Interpretating Date/Time 04/21/2018 22:40:19
--- NOTE | 2018-04-21 22:41 | ECG ---
Date Performed: 04/21/2018 Time Performed: 01:08:37 PTAGE: 42 years EKG: Sinus rhythm POSSIBLE LEFT ATRIAL ENLARGEMENT LOW QRS VOLTAGE IN PRECORDIAL LEADS NONSPECIFIC T-WAVE ABNORMALITY BORDERLINE ECG PREVIOUS TRACING : 04/20/2018 22.12 DOCTOR: Hardy Waters Interpretating Date/Time 04/21/2018 22:40:51
--- NOTE | 2018-04-21 22:49 | ECG ---
Date Performed: 04/20/2018 Time Performed: 22:12:30 PTAGE: 42 years EKG: Sinus rhythm POSSIBLE LEFT ATRIAL ENLARGEMENT LOW QRS VOLTAGE IN PRECORDIAL LEADS BORDERLINE ECG PREVIOUS TRACING : 04/13/2017 22.41 DOCTOR: Hardy Waters Interpretating Date/Time 04/21/2018 22:46:46
--- NOTE | 2018-04-22 12:34 | TR ---
Date Performed: 04/21/2018 Time Performed: 13:08:07 DOCTOR: Davion Garcia DRUG LIST: CLINICAL HISTORY: CHEST PAIN REASON FOR TEST: Chest pain REASON FOR ENDING: OBSERVATION: CONCLUSION: Lexiscan stress test was performed under standard four minute protocol. Radionuclide was injected one minute prior to ending the test. No electrocardiographic abormalities were present to suggest ischemia. Nuclear imaging and interpretation are pending. COMMENTS:
== END 2018-04-21 15:28 | disposition home or self-care (01) ==
LOC: PHEDA 22:05 → PHED 22:05 → PH3 04-21 05:40
PROVIDERS: ADMIT Hospitalist; ATTEND Hospitalist
DX: I10 Essential (primary) hypertension; F32.9 Major depressive disorder, single episode, unspecified; R07.9 Chest pain, unspecified; G25.81 Restless legs syndrome; E87.6 Hypokalemia; Z79.899 Other long term (current) drug therapy
CPT/HCPCS: 71020; 71046; 78452; 80053; 80061; 82550; 84484; 84703; 85025; 85379; 93005; 93017; 99285; A9502; G0378; J2785; Q9969